=== PATIENT | female | born 1950 | race Caucasian/White ===

== ENCOUNTER → 2019-02-11 | Day surgery (SDC) | payer MEDICARE, MEDICAID ==
[2019-02-08 10:29] VITALS: BMI 21.1
[~2019-02-11] MED LIST: Lidocaine 1% PF 5 ML VIAL ONE; PROPOFOL 200 MG/20 ML VIAL ONE
--- NOTE | 2019-02-11 16:11 | OP ---
DATE OF PROCEDURE: 02/11/2019 PREPROCEDURE DIAGNOSIS: Colorectal cancer screening. POSTPROCEDURE DIAGNOSES: 1. Diminutive polyp, descending colon, removed by cold snare polypectomy. 2. A 1 cm polyp in ascending colon just across from the ileocecal valve, removed by hot snare polypectomy and submitted to Pathology. 3. Diverticulosis coli. 4. Otherwise normal colonoscopy. RECOMMENDATIONS: 1. High-fiber diet. 2. Repeat colonoscopy in 5 years. 3. Await pathology results. ANESTHESIA: TIVA. PROCEDURE IN DETAIL: After the patient was informed of the risks, benefits, and possible complications of endoscopy including perforation, bleeding, reaction to medication, and aspiration, informed consent was obtained. The patient was brought to endoscopy suite, where she was sedated in gradual fashion. Once she was comfortable, a rectal exam was performed and was normal. The endoscope was advanced through the anal canal to the colon. The cecum was identified by ileocecal valve and appendiceal orifice. The scope was then slowly removed. There was good visualization of the mucosa. There was a polyp in the descending colon, removed by cold snare polypectomy, and submitted to Pathology, it was about 5 mm in size. There was a semi-pedunculated polyp in ascending colon across the ileocecal valve, this was removed by hot snare polypectomy and submitted to Pathology. There was diverticulosis coli in the left and right colon. There were no other lesions seen. Retroflexed views in the rectum were normal. Scope was removed. The patient tolerated the procedure well. There were no complications. Job ID: [id number]
== END ==
LOC: SDC 10:06
PROVIDERS: ATTEND Internal Medicine Gastroenterology
PROC: 0DBK8ZZ Excision of Ascending Colon, Via Natural or Artificial Opening Endoscopic (ICD-10-PCS; principal; 2019-02-11)
PROC: 0DBN8ZZ Excision of Sigmoid Colon, Via Natural or Artificial Opening Endoscopic (ICD-10-PCS; 2019-02-11)
DX: D12.2 Benign neoplasm of ascending colon (principal); D12.5 Benign neoplasm of sigmoid colon; K58.1 Irritable bowel syndrome with constipation; K57.30 Diverticulosis of large intestine without perforation or abscess without bleeding; J44.9 Chronic obstructive pulmonary disease, unspecified; I10 Essential (primary) hypertension; G61.0 Guillain-Barre syndrome; M19.90 Unspecified osteoarthritis, unspecified site; F41.9 Anxiety disorder, unspecified; F32.9 Major depressive disorder, single episode, unspecified; Z79.899 Other long term (current) drug therapy; Z87.891 Personal history of nicotine dependence; Z88.0 Allergy status to penicillin; Z88.5 Allergy status to narcotic agent
CPT/HCPCS: 88305; J2001; J2704